=== PATIENT | female | born 1965 | race Caucasian/White ===

== ENCOUNTER 2017-09-02 18:41 | Emergency (ER) | payer MEDICAID | END 2017-09-02 19:51 | disposition home or self-care (01) | LOC: E/R 19:51 → FTE 18:41 | DX: J04.0 Acute laryngitis (principal) | CPT/HCPCS: 99284; Z7502 ==

== ENCOUNTER 2018-09-28 16:49 | Emergency (ER) | payer MEDICAID ==
[2018-09-28 17:26] LABS: ADD MAN DIFF? NO
[2018-09-28 17:30] LABS: WHITE BLOOD COUNT 7.1 10^3/ul (4.8-10.8)
[2018-09-28 17:30] LABS: BASOPHILS % 0.6 % (0.0-2.0); EOSINOPHILS # 0.1 10^3/ul (0.0-0.5); HEMATOCRIT 40.4 % (37.0-47.0); HEMOGLOBIN 13.3 g/dl (12.0-16.0); LYMPHOCYTES # 1.2 10^3/ul (0.8-2.9); LYMPHOCYTES % 17.3 % (15.0-51.0); MEAN CORPUSCULAR HEMOGLOBIN 30.7 pg (29.0-33.0); MEAN CORPUSCULAR HGB CONC 32.9 g/dl (32.0-37.0); MEAN CORPUSCULAR VOLUME 93.3 fl (82.0-101.0); MEAN PLATELET VOLUME 9.4 fl (7.4-10.4); MONOCYTE # 0.9 10^3/ul (0.3-0.9); NEUTROPHIL # 4.9 10^3/ul (1.6-7.5); NEUTROPHILS % 68.8 % (39.0-77.0); PLATELET COUNT 235 10^3/UL (140-415); RED BLOOD COUNT 4.33 10^6/ul (4.20-5.40); RED CELL DISTRIBUTION WIDTH 12.5 % (11.5-14.5)
[2018-09-28] MEDS: DEXAMETHASONE 10 MG/ML 1 ML INJ IV (17:30)
[2018-09-28] MEDS: KETOROLAC 30 MG INJ IV (17:31)
[2018-09-28] MEDS: SOD CHLORIDE 0.9% 1,000 ML IV (17:31)
[2018-09-28 17:46] LABS: ANION GAP 10 (5-13); BLOOD UREA NITROGEN 9 mg/dl (7-20); CALCIUM 8.8 mg/dl (8.4-10.2); CARBON DIOXIDE 23 mmol/L (21-31); CHLORIDE 108 mmol/L (97-110); CREATININE 0.71 mg/dl (0.44-1.00); Estimated GFR > 60 mL/min (>60); GLUCOSE 133 mg/dl (70-220); POTASSIUM 3.7 mmol/L (3.5-5.1); SODIUM 141 mmol/L (135-144)
[2018-09-28] MEDS: AMPICILLIN/SULB 3 GM/NS (PMX) 100 ML IVPB (17:54)
[2018-09-28] MEDS: IOHEXOL 300MG/ML 150 ML BTL (17:57)
[2018-09-28] MEDS: SOD CHLORIDE 0.9% 100 ML (17:57)
[2018-09-28] MEDS: FAMOTIDINE 20 MG INJ IV (18:37)
[2018-09-28] MEDS: LIDOCAINE/MYLANTA 40 ML BTL PO (18:37)
[2018-09-28] MEDS: BELLADONNA/PHENOBARBITAL TAB PO (18:37)
== END 2018-09-28 20:32 | disposition home or self-care (01) ==
LOC: E/R 16:49
DX: J03.90 Acute tonsillitis, unspecified (principal)
CPT/HCPCS: 36415; 70491; 80048; 81025; 85025; 96374; 96375; 99285-25